=== PATIENT | female | born 1965 | race Caucasian/White ===

== ENCOUNTER → 2016-11-18 | Outpatient (REF) | payer OTHER | LOC: M SFHCWAGY 15:00 | PROVIDERS: ATTEND Nurse Practitioner Family | DX: Z12.4 Encounter for screening for malignant neoplasm of cervix (principal) ==

== ENCOUNTER → 2016-11-18 | Outpatient (CLI) | payer BC ==
--- NOTE | 2016-11-18 16:15 | REPMRS ---
Patient History The patient states she had a clinical breast exam in 11/2016. No known family history of cancer. Benign stereotatic breast biopsy of the right breast, October 24, 2011. Reductions of both breasts, 1997. Taking hormonal contraceptives for 5 years. Digital Woman Screen Mammo: November 18, 2016 - Exam #: [id number] Bilateral CC and MLO view(s) were taken. Technologist: Maggie James, Technologist Prior study comparison: November 17, 2015, digital woman screen mammo performed at [facility]. November 14, 2014, digital woman screen mammo performed at [facility]. November 13, 2013, digital woman screen mammo performed at [facility]. FINDINGS: There are scattered fibroglandular densities. There has been no change in the appearance of the mammogram from the prior studies. There is a mild amount of scattered fibroglandular density which is fairly symmetric. There is no interval development of dominant mass, architectural distortion, or clustered microcalcification suggestive of malignancy. ASSESSMENT: BI-RADS/ACR category 1 mammogram. Negative. Recommendation Routine screening mammogram in 1 year (for women over age 40). This mammogram was interpreted with the aid of an FDA-approved computer-aided dectection system. Electronically Signed By: Davon Pacheco MD 11/18/16 6750
== END ==
LOC: M WHC 14:47
PROVIDERS: ATTEND Nurse Practitioner Family
DX: Z12.31 Encounter for screening mammogram for malignant neoplasm of breast (principal)

== ENCOUNTER → 2016-12-26 | Outpatient (CLI) | payer BC, OTHER ==
--- NOTE | 2016-12-26 10:12 | REP ---
PELVIC ULTRASOUND: Real-time sonographic evaluation of the pelvis performed utilizing transabdominal and endovaginal technique. Bladder measures 14.6 x 5.3 x 9.8 cm. Uterus measures 11.9 x 5.3 x 6.3 cm. Endometrial thickness is 8 mm. IUD is seen within the endometrial canal in the lower uterine segment. Right ovary could not be visualized. Left ovary measures 5.7 x 4.8 x 5.1 cm. Small nabothian cysts are seen in the region of the cervix. There is a simple cyst of the left ovary 5.0 x 4.0 x 4.1 cm. There is blood flow seen in the left ovary with duplex Doppler evaluation, with no torsion. No free fluid is seen. IMPRESSION: IUD positioned in the lower uterine segment. Simple left ovarian cyst measures 5.0 x 4.0 x 4.1 cm. Signed by Minesh Lundberg MD 12/26/2016 12:57 P
== END ==
LOC: M SMT 08:48
PROVIDERS: ATTEND Advanced Practice Midwife
DX: Z30.431 Encounter for routine checking of intrauterine contraceptive device (principal)

== ENCOUNTER → 2017-11-24 | Outpatient (CLI) | payer BC | LOC: M WHC 13:41 | DX: R92.8 Other abnormal and inconclusive findings on diagnostic imaging of breast (principal) | CPT/HCPCS: 77067 ==

== ENCOUNTER → 2017-11-24 | Outpatient (REF) | payer OTHER ==
[2017-11-29 00:07] LABS: HPV HYBRID CAPTURE II Negative (Negative)
== END ==
LOC: M SFHCWAGY 14:06
DX: Z12.4 Encounter for screening for malignant neoplasm of cervix (principal)

== ENCOUNTER → 2017-11-29 | Outpatient (REF) | payer OTHER | LOC: M SFHCWAGY 14:50 | DX: R87.619 Unspecified abnormal cytological findings in specimens from cervix uteri (principal) ==

== ENCOUNTER → 2017-12-01 | Outpatient (CLI) | payer BC, OTHER | LOC: M RAD 13:07 | DX: N63.0 Unspecified lump in unspecified breast (principal) | CPT/HCPCS: 77065 ==

== ENCOUNTER → 2018-12-25 | Outpatient (CLI) | payer BC ==
--- NOTE | 2018-12-25 15:57 | REPMRS ---
Patient History The patient states she had a clinical breast exam in 12/2018. No known family history of cancer. Benign ultrasound-guided core biopsy of the right breast, December 08, 2017. Benign stereotatic breast biopsy of the right breast, October 24, 2011. Reductions of both breasts, 1998. Took hormonal contraceptives for 5 years. Digital Woman Screen Mammo: December 25, 2018 - Exam #: [id number] Bilateral CC and MLO view(s) were taken. Technologist: Rosaura Camilo Technologist Prior study comparison: November 24, 2017, digital woman screen mammo performed at [facility]. November 18, 2016, digital woman screen mammo performed at [facility]. November 17, 2015, digital woman screen mammo performed at [facility]. FINDINGS: There are scattered fibroglandular densities. There has been no change in the appearance of the mammogram from the prior studies. There is a mild amount of scattered fibroglandular density which is fairly symmetric. There is no interval development of dominant mass, architectural distortion, or clustered microcalcification suggestive of malignancy. 3-D tomosynthesis shows no additional findings. Assessment: BI-RADS/ACR category 1 mammogram. Negative Mammogram. Recommendation Routine screening mammogram of both breasts in 1 year (for women over age 40). This patient's Lifetime Breast Cancer RIsk is estimated at 10.2 %. This mammogram was interpreted with the aid of an FDA-approved computer-aided dectection system. Electronically Signed By: Davon Pacheco MD 12/25/18 [id number]
== END ==
LOC: M WHC 10:19
PROVIDERS: ATTEND Nurse Practitioner Family
DX: Z12.31 Encounter for screening mammogram for malignant neoplasm of breast (principal); Z86.018 Personal history of other benign neoplasm; Z98.890 Other specified postprocedural states; Z92.0 Personal history of contraception

== ENCOUNTER 2019-02-15 05:54 | Day surgery (SDC) | payer BC, OTHER ==
[~2019-02-15] VITALS: Ht 154.9 cm; Wt 82.9 kg
[~2019-02-15 05:54] MED LIST: ADV250INH INH; AZEL0.055 NARES; CETI-36 PO; LISI10TA4 PO; OMEP40CA2 PO; OXYC1TAB23 PO
[2019-02-15] MEDS ORDERED: CLINDAMYCIN 900 MG in APPROPRIATE DILUENT 1 EA IV ONE (06:00)
[2019-02-15] MEDS ORDERED: LR 1,000 ML IV ONE (06:00)
[2019-02-15] MEDS ORDERED: AZTREONAM 2 GM in D5W MINI-BAG PLUS 50 ML IV ONE (06:00)
[2019-02-15] MEDS ORDERED: ACETAMINOPHEN 1000MG 100ML IV BTL (OFIRMEV) (J0131 PER 10MG) As Ordered ONE (06:37)
[2019-02-15] MEDS ORDERED: PROPOFOL 200 MG/20 ML VIAL As Ordered ONE (06:37)
[2019-02-15] MEDS ORDERED: dexameTHASONE 4 MG/ML 1ML VIAL (J1100) As Ordered ONE (06:37)
[2019-02-15] MEDS ORDERED: ONDANSETRON 4MG/2ML VIAL (J2405) As Ordered ONE ×2 (06:37→09:52)
[2019-02-15] MEDS ORDERED: ROCURONIUM BROMIDE 50 MG/5 ML VIAL As Ordered ONE ×2 (06:37→08:51)
[2019-02-15] MEDS ORDERED: LIDOCAINE 2% INJ 100 MG/5 ML SDV (FOR ANES.) As Ordered ONE (06:37)
[2019-02-15] MEDS ORDERED: KETOROLAC 60 MG/2 ML VIAL (J1885) As Ordered ONE (06:38)
[2019-02-15] MEDS ORDERED: METHYLENE BLUE 0.5% (5MG/ML) 10 ML AMP (PROVAYBLUE)(Q9968 PER 1MG) As Ordered ONE (06:59)
[2019-02-15] MEDS ORDERED: BUPIVACAINE HCL 0.25% 30 ML VIAL As Ordered ONE (06:59)
[2019-02-15] MEDS ORDERED: fentaNYL 250 MCG/5 ML INJECTION (J3010) As Ordered ONE (07:18)
[2019-02-15] MEDS ORDERED: MIDAZOLAM INJ 2 MG/2 ML VIAL (J2250) As Ordered ONE (07:18)
[2019-02-15] MEDS ORDERED: PHENYLephrine HCL 500 MCG/5 ML (100MCG/ML) SYRINGE (J2370) As Ordered ONE (08:04)
[2019-02-15] MEDS ORDERED: SUGAMMADEX SODIUM 500 MG/5 ML VIAL (BRIDION) As Ordered ONE (08:33)
[2019-02-15] MEDS: fentaNYL 100 MCG/2 ML INJECTION (J3010) IV PRN ×2 (09:51→09:58)
[2019-02-15] MEDS ORDERED: fentaNYL 100 MCG/2 ML INJECTION (J3010) As Ordered ONE (09:52)
--- NOTE | 2019-02-15 10:10 | RO ---
DATE OF PROCEDURE: 02/15/2019 PREOPERATIVE DIAGNOSIS: Abnormal uterine bleeding. POSTOPERATIVE DIAGNOSIS: Abnormal uterine bleeding. PROCEDURE PERFORMED: Robotic-assisted laparoscopic hysterectomy with bilateral salpingectomy and cystoscopy. SURGEON: Merlene oCto MD TIE TAPE MACHINE OPERATOR: Екатерина Fox NP ANESTHESIA: General tracheal anesthesia. ESTIMATED BLOOD LOSS: 50 mL. INTRAVENOUS FLUIDS: 600 mL of lactated Ringer's solution. URINE OUTPUT: 150 mL. PREOPERATIVE ANTIBIOTICS: 900 mg of clindamycin and 2 grams of Azactam. INFECTION CLASSIFICATION: II. SPECIMENS: Cervix, uterus, bilateral fallopian tubes. OPERATIVE FINDINGS: Normal appearing uterus and bilateral adnexa. Cystoscopic findings revealed normal bladder mucosa. Bilateral ureteral jets were observed. No foreign bodies or objects on cystoscopy. DESCRIPTION OF OPERATION: After informed consent was obtained and written consent was reviewed, the patient was brought to the operating room where she was placed under general endotracheal anesthesia. She was then prepped and draped in normal sterile fashion. A time out in the operating room was performed identifying the patient, the procedure be performed, as well as drug allergies. Speculum was placed revealing the cervix. Anterior and posterior aspects of the cervix were stitched with #0 Vicryl and a large VCare uterine manipulator was then advanced through cervical os and insufflated with 7 mL of air. The cervical cap as well as the vaginal sleeve was advanced down into the vagina. Speculum was then removed. Dozier catheter was then placed and set to gravity. Gloves were changed and then attention was turned to the patient's abdomen where a Veress needle was placed at the umbilicus. A pneumoperitoneum was obtained with CO2 gas. The supraumbilical area was infused with 0.25% Marcaine. Incision was made in this area and 8 mm trocar and sleeves advanced through this incision. The laparoscope was replaced revealing intra-abdominal placement. Three additional port sites were placed one to the right side of the patient parallel to the umbilicus and this was infused 0.25% Marcaine. Incision was made in this area and the 8 mm trocar and sleeve was advanced through this incision under direct visualization. Two additional port sites were placed on the left side of the patient, one parallel to the umbilicus and the other slightly above, each of these areas was infused with 0.25% Marcaine. Incision was made in each one of these areas and 8 mm trocars and sleeves advanced in these incisions under direct visualization. Next, the da Kellen was docked utilizing the camera arm and two operative arms. Next, bilateral salpingectomy was performed. The mesosalpinx bilaterally were cauterized and ligated with good hemostasis noted. The fallopian tubes were transected at the level of the uterus. This was done using a vessel sealer. Next, the utero-ovarian ligaments bilaterally were cauterized and ligated with good hemostasis noted. The round ligaments on both sides were cauterized and ligated with good hemostasis noted. The anterior leaf of the broad ligaments were dissected along the bladder creating a bladder flap. The remainder of the broad and cardinal ligaments were then cauterized and ligated with good hemostasis noted. The uterine vessels were skeletonized bilaterally and were cauterized and ligated with good hemostasis noted. Next, using Endo monopolar scissors, anterior and posterior colpotomies were made and the uterus was removed vaginally, including bilateral fallopian tubes. The surgical sites were then irrigated and suctioned. The vaginal cuff was then closed using an 0 V-Loc suture in a running nonlocking fashion. The surgical sites were inspected and noted be hemostatic. Ofe was applied over the surgical field. The da Kellen was then undocked and cystoscopy was performed. Dozier catheter was removed. The cystoscope was then advanced into the bladder showing normal bladder mucosa with no foreign objects. Bilateral ureteral jets were observed. The cystoscope was then removed. The bladder was drained. Attention was then turned to the patient's abdomen after gloves were changed and the incision was closed with #4-0 Monocryl and dressed with Dermabond. The patient then awakened from general anesthesia and taken to recovery in stable condition. Екатерина Fox, my surgical tech, played an essential role during the surgery. She assisted with port placement, manipulation of the uterus, as well as removal of the uterus and port closure. BAUTISTA
[2019-02-15] MEDS ORDERED: METOCLOPRAMIDE INJ 10MG/2ML VIAL (J2765) IV PRN (10:15)
[2019-02-15] MEDS ORDERED: MEPERIDINE INJ 25 MG/ML VIAL (J2175) IV PRN (10:15)
[2019-02-15] MEDS ORDERED: LR 1,000 ML IV SCH (10:15)
[2019-02-15] MEDS ORDERED: ONDANSETRON 4MG/2ML VIAL (J2405) IV PRN (10:15)
[2019-02-15] MEDS: PERCOCET 5MG/325MG TAB PO PRN ×2 (10:19→10:50)
[2019-02-15] MEDS: KETOROLAC 30 MG/ML VIAL (J1885) IV SCH ×2 (10:29→16:44)
[2019-02-15] MEDS ORDERED: PERCOCET 5MG/325MG TAB PO PRN (10:30)
[2019-02-15 11:00] VITALS: BP 144/83
[2019-02-15 11:30] VITALS: BP 134/68
[2019-02-15 12:00] VITALS: BP 132/65
[2019-02-15 13:26] VITALS: BP 145/72
[2019-02-15 14:57] VITALS: BP 122/69
[2019-02-15 16:00] VITALS: BP 139/63
[2019-02-15] MEDS ORDERED: SLF 3 ML SYR IV PRN (18:15)
[2019-02-15] MEDS ORDERED: SLF 3 ML SYR IV SCH (22:00)
== END 2019-02-15 19:15 | disposition home or self-care (01) ==
LOC: M SDC 05:54 → M PED 10:55 → M SDC 11:25
PROVIDERS: ATTEND Obstetrics & Gynecology
DX: N92.5 Other specified irregular menstruation (principal); N80.0 Endometriosis of uterus; N72 Inflammatory disease of cervix uteri; D25.1 Intramural leiomyoma of uterus; I10 Essential (primary) hypertension; K21.9 Gastro-esophageal reflux disease without esophagitis; Z88.0 Allergy status to penicillin; Z79.899 Other long term (current) drug therapy
CPT/HCPCS: 36415; 58571; 86850; 86900; 86901; 88307; J0131; J1100; J1885; J2250; J2370; J2405; J3010

== ENCOUNTER → 2020-02-19 | Outpatient (CLI) | payer BC ==
[~2020-02-19] MED LIST changes: -OMEP40CA2 PO; +OMEP40CA97 PO
--- NOTE | 2020-02-20 08:09 | REPMRS ---
Patient History The patient states she had a clinical breast exam in February 2020. No known family history of cancer. Benign ultrasound-guided core biopsy of the right breast, December 08, 2017. Benign stereotatic breast biopsy of the right breast, October 24, 2011. Reductions of both breasts, 1998. Took hormonal contraceptives for 5 years. Digital Woman Screen Mammo: February 19, 2020 - Exam #: [id number] Bilateral CC and MLO view(s) were taken. Technologist: Miroslava Grant Technologist Prior study comparison: December 25, 2018, bilateral digital woman screen mammo performed at [facility]. November 24, 2017, digital woman screen mammo performed at [facility]. November 18, 2016, digital woman screen mammo performed at [facility]. FINDINGS: There are scattered fibroglandular densities. The Volpara volumetric breast density category is:B. There has been no change in the appearance of the mammogram from the prior studies. There is a mild amount of scattered fibroglandular density which is fairly symmetric. There is no interval development of dominant mass, architectural distortion, or grouped microcalcification suggestive of malignancy. 3-D tomosynthesis shows no additional findings. Assessment: BI-RADS/ACR category 1 mammogram. Negative Mammogram. Recommendation Routine screening mammogram of both breasts in 1 year (for women over age 40). This patient's Lifetime Breast Cancer Risk is estimated at 9.9 %. This mammogram was interpreted with the aid of an FDA-approved computer-aided dectection system. Electronically Signed By: Davon Pacheco MD 02/20/20 0809
== END ==
LOC: M WHC 13:55
PROVIDERS: ATTEND Nurse Practitioner Family
DX: Z12.31 Encounter for screening mammogram for malignant neoplasm of breast (principal)

== ENCOUNTER → 2021-02-22 | Outpatient (CLI) | payer BC, OTHER ==
[~2021-02-22] MED LIST changes: +LISI10TA22 PO; -LISI10TA4 PO
--- NOTE | 2021-02-22 17:04 | REPMRS ---
Patient History The patient states she had a clinical breast exam on 02-22-2021. No known family history of cancer. Benign ultrasound-guided core biopsy of the right breast, December 08, 2017. Benign stereotatic breast biopsy of the right breast, October 24, 2011. Reductions of both breasts, 1997. Took hormonal contraceptives for 5 years. Patient states no breast complaints today. Patient has signed MRS History Sheet. Digital Woman Screen Mammo: February 22, 2021 - Exam #: [id number] Bilateral CC and MLO view(s) were taken. Technologist: aJqui Chaudhari, S Iron Worker Prior study comparison: February 19, 2020, bilateral digital woman screen mammo performed at [facility]. December 25, 2018, bilateral digital woman screen mammo performed at [facility]. FINDINGS: The breast tissue is almost entirely fat. The Volpara volumetric breast density category is: A. There is a needle biopsy marker clip again noted in the left breast. There has been no change in the appearance of the mammogram from the prior studies. There is no interval development of dominant mass, architectural distortion, or grouped microcalcification typical of malignancy. 3-D tomosynthesis shows no additional findings. Assessment: BI-RADS/ACR category 2 mammogram. Benign Findings. Recommendation Routine screening mammogram of both breasts in 1 year (for women over age 40). This patient's [facility] Lifetime Breast Cancer RIsk is estimated at 9.7 %. This mammogram was interpreted with the aid of an FDA-approved computer-aided dectection system. Electronically Signed By: Davon Pacheco MD 02/22/21 [id number]
== END ==
LOC: M WHC 15:01
PROVIDERS: ATTEND Nurse Practitioner Women's Health
DX: Z12.31 Encounter for screening mammogram for malignant neoplasm of breast (principal); Z98.890 Other specified postprocedural states

== ENCOUNTER → 2021-09-27 | Outpatient (CLI) | payer BC, OTHER ==
[~2021-09-27] MED LIST changes: +ALBU83IN INH; +ESTR0.1C5 VG; +FLUTISP; +LIDOCAINE 1% MDV 20ML VIAL As Ordered ONE; +OMEP40CA4 PO; -OMEP40CA97 PO; +PROAAER10 INH; +SUMA25TA3 PO; +ZYRTTAB8 PO
[2021-09-27 12:20] VITALS: BP 178/80
== END ==
LOC: M IRPRO 10:57
PROVIDERS: ATTEND Otolaryngology
DX: R59.9 Enlarged lymph nodes, unspecified (principal)

== ENCOUNTER → 2021-11-10 | Outpatient (CLI) | payer BC, OTHER ==
[~2021-11-10] MED LIST changes: -LIDOCAINE 1% MDV 20ML VIAL As Ordered ONE
== END ==
LOC: M LABSMTC 09:13
PROVIDERS: ATTEND Anesthesiology
DX: Z01.812 Encounter for preprocedural laboratory examination (principal); Z11.52 Encounter for screening for COVID-19

== ENCOUNTER 2021-11-15 10:49 | Day surgery (SDC) | payer BC, OTHER ==
[~2021-11-15] VITALS: Ht 154.9 cm; Wt 84.8 kg
[2021-11-15] MEDS ORDERED: ONDANSETRON 4MG/2ML VIAL As Ordered ONE (11:50)
[2021-11-15] MEDS ORDERED: dexameTHASONE 4 MG/ML 1ML VIAL (J1100 PER 1MG) As Ordered ONE (11:50)
[2021-11-15] MEDS ORDERED: LIDOCAINE 2% 100MG/5ML SDV (FOR ANES.) As Ordered ONE (11:50)
[2021-11-15] MEDS ORDERED: fentaNYL 250 MCG/5 ML INJECTION As Ordered ONE (11:50)
[2021-11-15] MEDS ORDERED: MIDAZOLAM INJ 2MG/2ML VIAL (J2250 PER 1MG) As Ordered ONE (11:50)
[2021-11-15] MEDS ORDERED: propofoL 200 MG/20 ML VIAL As Ordered ONE (11:51)
[2021-11-15] MEDS ORDERED: ROCURONIUM BROMIDE 50 MG/5 ML VIAL As Ordered ONE (11:51)
[2021-11-15] MEDS ORDERED: SUCCINYLCHOLINE 100 MG/5 ML SYRINGE (J0330) As Ordered ONE (11:55)
[2021-11-15] MEDS ORDERED: BACITRACIN OINTMENT 30GM TUBE As Ordered ONE (12:46)
[2021-11-15] MEDS ORDERED: LIDOCAINE W/EPINEPHRINE 1% 20ML VIAL As Ordered ONE (12:46)
[2021-11-15] MEDS ORDERED: ACETAMINOPHEN 1000MG 100ML IV BTL (OFIRMEV) (J0131 PER 10MG) As Ordered ONE (13:21)
[2021-11-15] MEDS ORDERED: PHENYLephrine 500MCG 5ML (100MCG/ML) SYRINGE As Ordered ONE ×2 (13:24→13:35)
[2021-11-15] MEDS ORDERED: ePHEDrine SULFATE 25 MG/5 ML(5MG/ML) SYRINGE As Ordered ONE ×2 (13:24→13:36)
[2021-11-15] MEDS ORDERED: fentaNYL 100 MCG/2 ML INJECTION IV PRN (14:30)
[2021-11-15] MEDS ORDERED: oxyCODONE 5MG TAB PO PRN (14:30)
[2021-11-15] MEDS ORDERED: ONDANSETRON 4MG/2ML VIAL IV PRN ×2 (14:30→14:35)
[2021-11-15] MEDS ORDERED: LR 1,000 ML IV SCH ×2 (14:30)
[2021-11-15] MEDS ORDERED: MORPHINE 2 MG/ML 1ML VIAL (J2270) IV PRN (14:35)
[2021-11-15] MEDS ORDERED: ANEXSIA, NORCO 7.5MG/325MG TABLET(HYDROCODONE/APAP) PO PRN (14:35)
[2021-11-15 15:06] VITALS: BP 128/77
== END 2021-11-15 15:32 | disposition home or self-care (01) ==
LOC: M SDC 10:49
PROVIDERS: ATTEND Otolaryngology
DX: R59.0 Localized enlarged lymph nodes (principal); I10 Essential (primary) hypertension; J45.909 Unspecified asthma, uncomplicated; K57.92 Diverticulitis of intestine, part unspecified, without perforation or abscess without bleeding; Z79.899 Other long term (current) drug therapy; Z79.51 Long term (current) use of inhaled steroids; Z88.0 Allergy status to penicillin
CPT/HCPCS: 38542; 88305; J0131; J0330; J1100; J2250; J2370; J2405; J3010

== ENCOUNTER → 2022-06-08 | Outpatient (CLI) | payer BC, OTHER ==
[~2022-06-08] MED LIST changes: +ALBU2.5V10 INH; -ALBU83IN INH
== END ==
LOC: M WHC 13:19
PROVIDERS: ATTEND Obstetrics & Gynecology
DX: Z12.31 Encounter for screening mammogram for malignant neoplasm of breast (principal)

== ENCOUNTER → 2023-07-12 | Outpatient (CLI) | payer BC, OTHER ==
[~2023-07-12] MED LIST changes: +FLUT50SP17; -FLUTISP
== END ==
LOC: M WHC 14:46
PROVIDERS: ATTEND Obstetrics & Gynecology
DX: Z12.31 Encounter for screening mammogram for malignant neoplasm of breast (principal)

== ENCOUNTER → 2023-12-11 | Outpatient (CLI) | payer BC, OTHER ==
[~2023-12-11] MED LIST changes: -FLUT50SP17; +FLUTISP
== END ==
LOC: M RAD 11:14
PROVIDERS: ATTEND Otolaryngology
DX: R59.0 Localized enlarged lymph nodes (principal)

== ENCOUNTER → 2024-07-17 | Outpatient (CLI) | payer BC ==
[~2024-07-17] MED LIST changes: -AZEL0.055 NARES; +AZEL1SPR4 NARES
== END ==
LOC: M WHC 15:13
PROVIDERS: ATTEND Nurse Practitioner Family
DX: Z12.31 Encounter for screening mammogram for malignant neoplasm of breast (principal); R92.323 Mammographic fibroglandular density, bilateral breasts